=== PATIENT | male | born 1990 | race Caucasian/White ===

== ENCOUNTER 2016-07-05 18:49 | Emergency (ER) | payer OTHER ==
--- NOTE | 2016-07-05 20:58 | ERNOTE ---
Abdominal HPI - General Chief Complaint: Abdominal Pain Time Seen by Provider: 07/05/16 20:48 Source: patient Exam Limitations: no limitations - Immun/Allergies/Home Medications Immunizatons: IMMUNIZATION HX Immunizations Up to Date Yes History of Influenza Vaccine No Hx Pneumococcal Vaccination No Allergies/Adverse Reactions: Allergies Sulfa (Sulfonamide Antibiotics) Allergy (Severe, Verified 04/19/13 19:42) Anaphylaxis Home Medications: HOME MEDICATIONS Pantoprazole Sodium [Protonix] 20 mg PO DAILY 07/12/14 [Last Taken Unknown] guaiFENesin [Mucinex] 600 mg PO DAILY 07/05/16 [Last Taken Unknown] hydrOXYzine HCL [Atarax] 25 mg PO Q8H PRN 07/05/16 [Last Taken Unknown] - History of Present Illness Narrative: Pt has been constipated and 3 weeks ago he began to take stool softeners then took a bottle of magnesium citrate 2 weeks ago. He believes he cleaned out but still has some RUQ, RLQ pressure. Timing: getting worse Quality: moderate, fullness Activities at Onset: none Review of Systems - Review of Systems Constitutional: Absent: recent illness EYE: Present: no symptoms reported ENT: Present: no symptoms reported Respiratory: Present: no symptoms reported Cardiology: Present: no symptoms reported Gastrointestinal/Abdominal: Present: constipation Genitourinary: Present: no symptoms reported Musculoskeletal: Present: no symptoms reported Skin: Present: no symptoms reported Neurological: Present: no symptoms reported Endocrine: Present: no symptoms reported Hematologic/Lymphatic: Present: no symptoms reported Psych: Present: no symptoms reported - Patient's Past Medical History Patient History - Medical: Anxiety, Other Patient History - Cardiac/Respiratory: No pertinent hx Patient History - Cancer: No Hx of Cancer Patient History - Surgical Procedures: Appendectomy, T & A, Other Patient History - Other: None - Social History Living Situations: home Abuse History: No History of abuse Psych History: Hx of Anxiety Smoking Status: Never smoker Have you smoked in the past 12 months: Yes Alcohol Use: occasionally Drug Use: none - Immunizations Immunizations Up to Date: Yes Hx Pneumococcal Vaccination: No History of Influenza Vaccine: No Physical Exam - Physical Exam General Appearance: Present: wd/wn, alert, no apparent distress Ears, Nose, Throat: Present: hearing grossly normal Respiratory: Present: no respiratory distress, no accessory muscle use Gastrointestinal/Abdominal: Present: tenderness - LUQ and mid to lower left, abnormal bowel sounds - hyperactive. Absent: distended, guarding, rebound Back Exam: Present: normal inspection, normal range of motion Neurological Exam: Present: alert, oriented, normal mood/affect Skin Exam: Present: normal color, warm/dry ED Progress - Results and Orders Patient's Lab Results:: I have reviewed the patient's lab results. Results and Orders: Laboratory Tests 07/05/16 07/05/16 20:55 20:55 WBC 6.3 Hgb 15.1 Hct 43.6 Plt Count 302 Sodium 142 Potassium 3.9 Chloride 103 Carbon Dioxide 29.4 Anion Gap 13.5 BUN 15 Creatinine 1.13 Est GFR (Non-Af Amer) 83 Random Glucose 105 Calcium 9.9 Total Bilirubin 0.5 AST 16 ALT 32 Alkaline Phosphatase 65 Total Protein 8.5 H Albumin 4.7 - Vital Signs Patient's Vital Signs:: I have reviewed the patient's vital signs. Vital Signs: Vital Signs 07/05/16 19:10 Temperature 36.8 C Pulse Rate 105 H Respiratory 16 Rate Blood Pressure 129/82 O2 Sat by Pulse 99 Oximetry - X-Ray X-Ray #1 X-Ray: abdomen Interpretation: Interp. by me X-ray Comments: moderate stool retention bilateral without evidence for obstruction - Progress/Reassessment Chief Complaint: Abdominal Pain Departure - Departure Clinical Impression: Constipation Qualifiers: Constipation type: other constipation type Qualified Code(s): K59.09 - Other constipation Disposition: Home self-care Condition: Good Instructions: Constipation, Adult, [id number] Additional Instructions: use miralax three times a day until you have 2-3 full BM's daily, then reduce to daily or start a fiber suppliment and increase to 3 times a day over 1-2 weeks. Follow up with your regular doctor if not improving Referrals: Isiah España MD [Primary Care Provider] -
--- OUTSIDE RECORDS SUMMARY | 2016-07-05 21:19 | XMS REPORT | Continuity of Care Document ---
:1990 Author Organization [facility] ([facility]) Address [address] [place] [address] Phone [phone] Care Team Providers Name Role Phone Provider, No-Primary Care Primary Care Provider Unavailable Source Comments This disclosure is being made pursuant to the Care Everywhere program, applicable federal and state laws, and may not contain all informaitonavailable regarding this patient.[facility] ([facility]) Active Allergies and Adverse Reactions Not on File Current Medications Not on file Active Problems Problem Noted Date Diplopia 01/22/2007 Social History Tobacco Use Types Packs/Day Years Used Date Never Assessed Plan of Care Health Maintenance Due Date Last Done Comments Hepatitis B Vaccine (1 of 3 - Primary Series) 1990 Tdap Vaccine 01/22/2000 Lipid Disorder Screening 2007 MMR Vaccine 2007 Td Vaccine 2007 Varicella Vaccine (1 of 2 - Adult - No Evidence of 2007 Immunity) Influenza Vaccine: Seasonal (#1) 12/19/2015 Results from Last 3 Months Not on file
[2016-07-05 21:22] LABS: Hematocrit 43.6 % (42.0-52.0); Hemoglobin 15.1 gm/dL (13.5-18.0); Mean Cell Volume 82.1 fl (78-100); Mean Corpuscular Hemoglobin 28.4 pg (27-31); Mean Corpuscular Hgb Conc 34.6 g/dl (32-36); Mean Platelet Volume 9.8 fl (6.0-9.5); Neutrophil # 3.9 K/mm3 (1.3-6.0); Neutrophil % 61.3 % (42-75.0); Platelet Count 302 K/mm3 (150-450); Red Blood Count 5.31 M/mm3 (4.7-6.0); Red Cell Distribution Width 12.7 % (11.5-14.0); White Blood Count 6.3 K/mm3 (4.0-10.5)
[2016-07-05 21:37] LABS: Albumin * 4.7 gm/dl (3.4-5.0); Anion Gap 13.5 mmol/L (6.8-13.8); BUN/Creatinine Ratio 13.3 (9.0-21.6); Bilirubin, Total 0.5 mg/dL (0.0-1.1); Calcium * 9.9 mg/dL (7.9-10.9); Carbon Dioxide 29.4 mmol/L (24-32.6); Potassium 3.9 mmol/L (3.4-4.6); Total Protein 8.5 gm/dL (6.2-8.2)
[2016-07-05 22:19] VITALS: BP 131/71
== END 2016-07-05 22:21 | disposition home or self-care (01) ==
LOC: ER 18:49
DX: R10.11 Right upper quadrant pain (principal); K59.09 Other constipation; F41.9 Anxiety disorder, unspecified

== ENCOUNTER 2016-12-14 22:51 | Emergency (ER) | payer BC ==
[2016-12-15 01:51] LABS: Hematocrit 42.9 % (42.0-52.0); Mean Cell Volume 81.1 fl (78-100); Mean Corpuscular Hemoglobin 28.4 pg (27-31); Mean Platelet Volume 9.7 fl (6.0-9.5); Neutrophil # 4.8 K/mm3 (1.3-6.0); Neutrophil % 65.2 % (42-75.0); Platelet Count 265 K/mm3 (150-450); Red Blood Count 5.29 M/mm3 (4.7-6.0); Red Cell Distribution Width 12.9 % (11.5-14.0); White Blood Count 7.4 K/mm3 (4.0-10.5)
[2016-12-15 02:04] LABS: Albumin * 4.7 gm/dl (3.4-5.0); Anion Gap 12.7 mmol/L (6.8-13.8); BUN/Creatinine Ratio 11.6 (9.0-21.6); Bilirubin, Total 0.7 mg/dL (0.0-1.1); Ca. Corrected For Albumin 8.2 mg/dL (8.4-10.2); Calcium * 9.1 mg/dL (7.9-10.9); Carbon Dioxide 29.3 mmol/L (24-32.6); Total Protein 8.3 gm/dL (6.2-8.2)
[2016-12-15 02:21] VITALS: BP 127/82
[2016-12-15] MEDS ORDERED: AZITHROMYCIN 250 MG TABLET ONE (02:42)
[2016-12-15] MEDS ORDERED: AZITHROMYCIN 250 MG TABLET PO ONE (02:58)
--- NOTE | 2016-12-15 03:01 | ERNOTE ---
ENT HPI Date of Service: 12/15/16 Time Seen by Provider: 12/15/16 02:33 Source: patient - Immun/Allergies/Home Medications Immunizations: IMMUNIZATION HX Immunizations Up to Date Yes History of Influenza Vaccine No Hx Pneumococcal Vaccination No Allergies/Adverse Reactions: Allergies Allergy/AdvReac Type Severity Reaction Status Date / Time Sulfa (Sulfonamide Allergy Severe Anaphylaxis Verified 12/14/16 23:01 Antibiotics) Home Medications: HOME MEDICATIONS hydrOXYzine HCL [Atarax] 25 mg PO Q8H PRN 07/05/16 [Last Taken Unknown] FLUoxetine HCL [Prozac] 40 mg PO DAILY 12/14/16 [Last Taken Unknown] Pantoprazole Sodium [Protonix] 20 mg PO DAILY 12/14/16 [Last Taken Unknown] Amox Tr/Potassium Clavulanate [Augmentin 875-125 Tablet] 875 mg PO Q12H #20 tab 12/15/16 [Last Taken Unknown] Azithromycin [Zithromax Tri-Thomas] 500 mg PO DAILY #3 tablet 12/15/16 [Last Taken Unknown] predniSONE [Prednisone] 2 tab PO DAILY #10 tab 12/15/16 [Last Taken Unknown] - History of Present Illness Narrative: Patient chest xray was reiviewed and shows some basliar atelectasis Severity: Present: moderate ENT Location: Present: throat - sore throat Prearrival Treatment: Present: no prearrival treatment Modifying Factors - Improves: Reports: coughing Modifying Factors - Worsens: Reports: coughing Associated Symptoms - ENT: Reports: malaise, poor fluid intake Prior Treament: Reports: other - no previous evaluation Review of Systems - Review of Systems Constitutional: Present: fever, chills, malaise EYE: Present: no symptoms reported ENT: Present: sore throat, throat swelling Respiratory: Present: cough Cardiology: Present: no symptoms reported Gastrointestinal/Abdominal: Present: no symptoms reported Genitourinary: Present: no symptoms reported Musculoskeletal: Present: no symptoms reported Skin: Present: no symptoms reported Neurological: Present: no symptoms reported Endocrine: Present: no symptoms reported Hematologic/Lymphatic: Present: swollen glands All Other Systems: All systems neg except as marked - Narrative Narrative: Reviewed all past history as below. - Patient's Past Medical History Patient History - Medical: Anxiety, Other Patient History - Cardiac/Respiratory: No pertinent hx Patient History - Cancer: No Hx of Cancer Patient History - Surgical Procedures: Appendectomy, T & A, Other Patient History - Other: None - Social History Living Situations: home Abuse History: No History of abuse Psych History: Hx of Anxiety, Current tx/ever been on anti-depressants or anti- anxiety meds Smoking Status: Never smoker Do you dip or chew tobacco: Yes Alcohol Use: occasionally Drug Use: none - Immunizations Immunizations Up to Date: Yes Hx Pneumococcal Vaccination: No History of Influenza Vaccine: No Physical Exam - Physical Exam General Appearance: Present: wd/wn, mild distress - due to pain in posterior pharynx Head Exam: Present: normal inspection, no evidence of injury Eye Exam: Normal inspection: bilateral, PERRL: bilateral, EOMI: bilateral Ears, Nose, Throat: Present: pharyngeal erythema, pharyngeal swelling, tonsillar exudate, tonsillar swelling. Absent: abnormal TM (R), abnormal TM (L) Neck: Present: normal inspection, lymphadenopathy (L) Respiratory: Present: no respiratory distress, normal breath sounds, no accessory muscle use, lungs clear Cardiovascular/Chest: Present: regular rate, rhythm, no murmur, normal peripheral pulses Peripheral Pulses: N=norm/S=strong/W=weak/B=bound/A=absent: Carotid (R): Normal , Carotid (L): Normal Gastrointestinal/Abdominal: Present: normal bowel sounds, nontender, soft Male Genitals Exam: Present: deferred Back Exam: Present: normal inspection, normal range of motion Extremity Exam: Present: normal inspection, no edema Neurological Exam: Present: alert, oriented Skin Exam: Present: normal color, warm/dry. Absent: skin rash Lymphatic Exam: Present: other - mild cervical lymphadenopathy. ED Progress - Results and Orders Patient's Lab Results:: I have reviewed the patient's lab results. Results and Orders: Laboratory Tests 12/14/16 12/15/16 12/15/16 23:00 01:45 01:45 WBC 7.4 RBC 5.29 Hgb 15.0 Hct 42.9 MCV 81.1 MCH 28.4 MCHC 35.0 RDW 12.9 Plt Count 265 MPV 9.7 H Immature Gran % (Auto) 0.10 Immature Gran # (Auto) 0.01 Neutrophils % 65.2 Lymphocytes % 27.7 Monocytes % 6.2 Eosinophils % 0.4 Basophils % 0.4 Nucleated RBC % 0.0 Sodium 140 Potassium 4.0 Chloride 102 Carbon Dioxide 29.3 Anion Gap 12.7 BUN 14 Creatinine 1.21 Est GFR (Non-Af Amer) 76 BUN/Creatinine Ratio 11.6 Random Glucose 107 Calcium 9.1 Total Bilirubin 0.7 AST 20 ALT 44 Alkaline Phosphatase 59 Total Protein 8.3 H Albumin 4.7 Group A Strep Rapid Negative - Vital Signs Patient's Vital Signs:: I have reviewed the patient's vital signs. Vital Signs: Vital Signs 12/14/16 12/15/16 22:57 02:20 Temperature 37.2 C Pulse Rate 106 H 81 Respiratory 18 18 Rate Blood Pressure 158/84 127/82 O2 Sat by Pulse 99 99 Oximetry - X-Ray X-Ray #1 X-Ray: chest Interpretation: Interp. by me, Reviewed by me X-ray Comments: [facility] PATIENT RADIOLOGY STUDY REPORT Patient Patient Name:NIMA SPIVEY Date: 1990 Sex: M Order Number: [id number] Unique Exam ID: [id number] Exam Requested: CXRPALAT - Chest PA Lateral * Date Scheduled: 12-15-2016 01:50 AM Study Priority: Requesting Service: Requesting Physician: Marissa Garcia Reason for Exam: coughing Radiological Report : [address] [place] [address] NAME: NIMA SPIVEY : 1990 MR #: [id number] CC: Marissa Garcia DO LOC: ADM DATE: X-RAY REPORT [id number] RAD/Chest PA Lateral * Exam Date: 12/15/2016 01:50 Ordering Physician: Marissa Garcia History: Cough. Sore throat. Technique: PA and lateral views. Comparison: 07/14/2014 Findings: Heart size and vascularity appear within normal limits. Lung gan show no focal infiltrates or effusions. IMPRESSION: NO ACUTE CARDIOPULMONARY DISEASE IDENTIFIED. Electronically signed by Jamil Todd M.D.. Jamil Todd MD Dict: 12/15/16 0950 Typed: 12/15/16 0950/ 12/15/16 0950 12/15/16 0954 - Progress/Reassessment Chief Complaint: Sore Throat Progress:: Unchanged Plan - Plan Plan: Patient reported some improvement in his discomfort. Departure Clinical Impression: Acute laryngitis due to Haemophilus influenzae Pharyngitis Qualifiers: Pharyngitis/tonsillitis etiology: other specified organisms Qualified Code(s): J02.8 - Acute pharyngitis due to other specified organisms - Departure Disposition: Home self-care Condition: Good Instructions: Upper Respiratory Infection, Adult, [id number] Additional Instructions: Patient is stable for discharge, labs normal Referrals: Isiah España MD [Primary Care Provider] - Prescriptions: Azithromycin [Zithromax Tri-Thomas] 500 mg PO DAILY #3 tablet
== END 2016-12-15 03:05 | disposition home or self-care (01) ==
LOC: ER 22:51
DX: J04.0 Acute laryngitis (principal); B96.3 Hemophilus influenzae [H. influenzae] as the cause of diseases classified elsewhere; J02.8 Acute pharyngitis due to other specified organisms; F17.220 Nicotine dependence, chewing tobacco, uncomplicated; F41.9 Anxiety disorder, unspecified

== ENCOUNTER 2016-12-15 13:57 | Emergency (ER) | payer BC ==
[2016-12-15] MEDS ORDERED: ALBUTEROL SULFATE/IPRATROPIUM 3 ML NEBU IH ONE ×2 (14:46→14:48)
[2016-12-15 14:48] VITALS: BP 126/75
[2016-12-15] MEDS ORDERED: AMOX TR/POTASSIUM CLAVULANATE 875 MG TABLET PO ONE (15:19)
[2016-12-15] MEDS ORDERED: predniSONE 20 MG TABLET PO ONE (15:19)
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
[2016-12-15] MEDS ORDERED: AMOX TR/POTASSIUM CLAVULANATE 875 MG TABLET ONE (15:31)
[2016-12-15] MEDS ORDERED: predniSONE 20 MG TABLET ONE (15:31)
== END 2016-12-15 15:36 | disposition home or self-care (01) ==
LOC: ER 13:57
DX: J20.9 Acute bronchitis, unspecified (principal); J01.90 Acute sinusitis, unspecified